=== PATIENT | female | born 2000 | race Caucasian/White ===

== ENCOUNTER → 2020-04-28 | Outpatient (CLI) | payer BC | LOC: LAB FS 14:41 | PROVIDERS: ATTEND Family Medicine | DX: N92.5 Other specified irregular menstruation (principal) | CPT/HCPCS: 36415; 84702 ==

== ENCOUNTER → 2020-05-28 | Outpatient (CLI) | payer BC | LOC: LAB FS 14:55 | PROVIDERS: ATTEND Family Medicine | DX: N92.6 Irregular menstruation, unspecified (principal) | CPT/HCPCS: 36415; 84443 ==

== ENCOUNTER → 2020-08-21 | Outpatient (CLI) | payer BC | LOC: LAB FS 10:38 | PROVIDERS: ATTEND Family Medicine | DX: N92.5 Other specified irregular menstruation (principal) | CPT/HCPCS: 36415; 84702 ==

== ENCOUNTER → 2021-02-02 | Outpatient (CLI) | payer BC ==
--- NOTE | 2021-02-02 16:59 | Diagnostic Imaging Report ---
INDICATION: anatomy survey. TECHNIQUE: Multiple Real-time grayscale images were obtained over the gravid uterus. COMPARISON: None. FINDINGS: A single live intrauterine is in breech presentation. The cervix measures approximately 5.9 cm in length. The amount of amniotic fluid appears visually appropriate. The placenta is posterior in position but the tip is not well visualized. The following structures are visualized and normal: cerebellum, cisterna magna, cerebral ventricles, kidneys, umbilical cord insertion, urinary bladder, three-vessel cord, and profile. The spine and heart were not well visualized due to position. Biometrical measurements are as follows: Biparietal 4.79 cm, age 20 weeks 4 days. Head circumference 17.94 cm, age 20 weeks 3 days. Abdominal circumference 16.56 cm, age 21 weeks 5 days. Femur length 3.32 cm, age 20 weeks 3 days. Sonographic estimate age: 20 weeks 6 days. Sonographic estimated date of delivery: 06/16/2021. Estimated Weight: 389 gm (+/- 57 gm). LMP percentile: 13%. heart rate: 149 beats per minute. number: 1 of 1. IMPRESSION: 1. Single live intrauterine with all of the visualized anatomy being normal. 2. The spine and heart were not well evaluated due to positioning. Consider followup ultrasound in the near future. 3. Additionally, the inferior margin of the placenta is not well visualized and attention to this region on followup surveillance is suggested. Dictated by: Dictated on workstation # [id number]
== END ==
LOC: RAD 14:40
PROVIDERS: ATTEND Obstetrics & Gynecology
DX: Z34.02 Encounter for supervision of normal first pregnancy, second trimester (principal); Z3A.00 Weeks of gestation of pregnancy not specified
CPT/HCPCS: 76805

== ENCOUNTER → 2021-03-12 | Outpatient (CLI) | payer BC ==
--- NOTE | 2021-03-12 17:15 | Diagnostic Imaging Report ---
INDICATION: Follow-up anatomic survey and placenta. TECHNIQUE: Multiple real-time grayscale images were obtained over the gravid uterus. COMPARISON: None. FINDINGS: There is a single live intrauterine gestation in cephalic presentation. The cervix is measured at 5.6 cm in length. There is no funneling or endocervical fluid. The edge of the placenta is measured at 10.6 cm away from the cervical os. The placenta is posterior. heart rate measures 134 BPM. Amniotic fluid is subjectively normal, and a vertical pocket is seen measuring 4.6 cm. On the previous anatomic survey, the spine and heart were not well seen. Again, due to the lie and the maternal body habitus, anatomic imaging is suboptimal, and the upper and lower spine is not well seen. The visible portions demonstrate no gross abnormality. A four-chamber heart and the outflow tracts are not shown. IMPRESSION: 1. Single live intrauterine gestation with normal heart rate and amniotic fluid. 2. No placenta previa. 3. Spine and heart anatomy remain not well seen. Dictated by: Dictated on workstation # [id number]
== END ==
LOC: RAD 15:15
PROVIDERS: ATTEND Obstetrics & Gynecology
DX: Z36.1 Encounter for antenatal screening for raised alphafetoprotein level (principal)
CPT/HCPCS: 76816

== ENCOUNTER 2021-06-01 10:06 | Outpatient (CLI) | payer BC ==
[~2021-06-01] VITALS: Ht 172.7 cm; Wt 120.1 kg
[2021-06-01] MEDS ORDERED: MV-M1TAB66 PO (10:18)
[2021-06-01 10:20] VITALS: BP 133/80
[2021-06-01 10:31] LABS: BILIRUBIN,URINE NEGATIVE (NEGATIVE); CLARITY,URINE CLEAR; COLOR,URINE YELLOW; GLUCOSE, URINE (UA) NEGATIVE (NEGATIVE); KETONES,URINE NEGATIVE (NEGATIVE); LEUKOCYTE ESTERASE ,URINE NEGATIVE (NEGATIVE); NITRITE,URINE NEGATIVE (NEGATIVE); PH,URINE 7.5 (5-9); PROTEIN,URINE NEGATIVE (NEGATIVE)
[2021-06-01 10:46] LABS: BACTERIA,URINE NEGATIVE /HPF; SQUAMOUS EPITHELIAL CELL,UR 0-2 /HPF
--- NOTE | 2021-06-02 08:36 | Physician Query-Final Dx ---
06/02/21 0836: Clinic Account Progress/Dx Physician Query: Please give diagnosis Please include # weeks gestation Date of Service Jun 01, 2021 at 10:06 AVIS MERCEDES MD 06/02/21 1143: Clinic Account Progress/Dx DIAGNOSIS: Diagnosis False labor at 38 weeks gestation ,FebJun 02, 2021 08:36 AVIS MERCEDES MD Jun 02, 2021 11:43
== END 2021-06-01 12:00 | disposition home or self-care (01) ==
LOC: LDRP 10:06 → WSo 10:06
PROVIDERS: ATTEND Obstetrics & Gynecology
DX: O47.1 False labor at or after 37 completed weeks of gestation (principal); Z3A.38 38 weeks gestation of pregnancy
CPT/HCPCS: 81000; G0463; 99213

== ENCOUNTER 2021-06-05 07:00 | Inpatient (IN) | payer BC, MEDICAID ==
[~2021-06-05] VITALS: Ht 172.7 cm; Wt 120.6 kg
[2021-06-05] VITALS (67 sets, daily range): BP systolic 114–152; BP diastolic 57–95
[~2021-06-05 07:00] MED LIST: MV-M1TAB66 PO
[2021-06-05] MEDS ORDERED: OXYTOCIN PRE-MIX DRIP 500 ML IV SCH ×2 (07:30→10:30)
[2021-06-05] MEDS ORDERED: AMPICILLIN FOR IV USE 2,000 MG in WATER (STERILE) FOR INJECTION 14.8 ML IV ONE (07:30)
[2021-06-05] MEDS: D5 LR IV SOLUTION 1,000 ML IV SCH ×2 (08:30→14:54)
[2021-06-05 08:44] LABS: BASOPHILS % (AUTO) 0 % (0-10); EOSINOPHILS # (AUTO) 0.1 10^3/uL (0.0-0.3); EOSINOPHILS % (AUTO) 1 % (0-10); HEMATOCRIT 38 % (35-52); HEMOGLOBIN 12.4 g/dL (11.5-16.0); LYMPHOCYTES # (AUTO) 2.5 10^3/uL (1.0-4.0); LYMPHOCYTES % (AUTO) 26 % (12-44); MEAN CORPUSCULAR HEMOGLOBIN 29 pg (25-34); MEAN CORPUSCULAR HGB CONC 32 g/dL (32-36); MEAN CORPUSCULAR VOLUME 89 fL (80-99); MEAN PLATELET VOLUME 11.3 fL (9.0-12.2); MONOCYTES # (AUTO) 0.6 10^3/uL (0.0-1.0); MONOCYTES % (AUTO) 6 % (0-12); NEUTROPHILS # (AUTO) 6.4 10^3/uL (1.8-7.8); NEUTROPHILS % (AUTO) 67 % (42-75); PLATELET COUNT 217 10^3/uL (130-400); WHITE BLOOD COUNT 9.6 10^3/uL (4.3-11.0)
--- NOTE | 2021-06-05 10:32 | Discharge Inst-Surgical ---
Discharge Inst-Surgical Depart Medication/Instructions New, Converted or Re-Newed RX: Other Consults/Follow Up Patient Instructions: As directed Orders & Referrals Follow Up Appt: Call to make follow up appt. for patient in 4 weeks. Activity Per routine post vaginal delivery instructions. Discharge medication prescriptions have been sent from my office. Diet as tolerated Patient may shower or tub bathe as desired. Activity Activity as Tolerated: Yes Diet Discharge Diet: No Restrictions AVIS MERCEDES MD Jun 05, 2021 10:32 am
[2021-06-05] MEDS: AMPICILLIN FOR IV USE 1,000 MG in WATER (STERILE) FOR INJECTION 7.4 ML IV SCH ×3 (12:19→21:05)
[2021-06-05] MEDS ORDERED: fentaNYL 2 mcg/ml BUPIVA 0.125 100 ML ONE (14:29)
[2021-06-05] MEDS ORDERED: fentaNYL INJ 100 MCG/2 ML AMP ONE (14:34)
[2021-06-05] MEDS ORDERED: BUPIVACAINE 0.25% 10 ML (SENSORCAINE) VIAL ONE (14:34)
[2021-06-05] MEDS ORDERED: LACTATED RINGERS 1,000 ML IV ONE (15:15)
[2021-06-05] MEDS ORDERED: NALOXONE 0.4 MG/ML 1 ML (NARCAN) VIAL IV PRN (15:15)
[2021-06-05] MEDS ORDERED: fentaNYL 2 mcg/ml BUPIVA 0.125 100 ML IV SCH (15:15)
[2021-06-05] MEDS ORDERED: CATHETER FLUSH 10 ML SYR IV PRN (15:15)
[2021-06-05] MEDS ORDERED: LIDOCAINE/EPI 2% 1:200,00 (XYLOCAINE) 10 ML VIAL ONE (21:13)
[2021-06-06] MEDS ORDERED: oxyCODONE/APAP 5/325MG (PERCOCET 5) TABLET PO PRN
[2021-06-06] MEDS ORDERED: ONDANSETRON 4 MG/2 ML (SDV) Z0FRAN IVP PRN
[2021-06-06] MEDS ORDERED: BENZOCAINE/MENTHOL (DERMOPLAST) 56 ML CAN TP PRN
[2021-06-06] MEDS ORDERED: TETANUS,DIPTH,PERTUSS P/F (BOOSTRIX) 0.5 ML VIAL IM ONE
[2021-06-06] MEDS ORDERED: OXYTOCIN PRE-MIX DRIP 500 ML IV SCH
[2021-06-06] MEDS ORDERED: KETOROLAC 30 MG/ML VIAL ONE (00:07)
[2021-06-06] MEDS: KETOROLAC 30 MG/ML VIAL IVP SCH ×2 (00:09→06:24)
[2021-06-06 00:11] VITALS: BP 121/59
[2021-06-06 05:00] VITALS: BP 110/59
[2021-06-06 08:15] VITALS: BP 118/78
[2021-06-06] MEDS: DOCUSATE SODIUM 100 MG (COLACE) CAP PO SCH ×2 (08:46→20:00)
--- NOTE | 2021-06-06 09:35 | Progress Note ---
Standard Progress Note Progress Notes/Assess & Plan Date Seen by a Provider: Jun 06, 2021 Time Seen by a Provider: 09:34 Progress/Assessment & Plan This patient is without complaint. She is ambulating, voiding, tolerating oral intake well and has good pain control. Vital Signs Date Time Temp Pulse Resp B/P (MAP) Pulse Ox O2 Delivery O2 Flow Rate FiO2 06/06/21 05:00 36.5 84 18 110/59 (76) 99 Room Air 06/06/21 00:11 37.1 91 20 121/59 (79) Room Air 06/05/21 23:56 85 20 122/71 (88) Room Air 06/05/21 23:41 91 20 120/66 (84) Room Air 06/05/21 23:26 90 20 133/78 (96) Room Air 06/05/21 23:16 92 20 142/79 (100) Room Air 06/05/21 22:56 89 20 131/60 (83) Room Air 06/05/21 22:41 94 20 130/65 (86) Room Air 06/05/21 22:26 89 20 131/61 (84) Room Air 06/05/21 22:12 89 20 135/61 (85) Room Air 06/05/21 21:56 96 20 137/82 (100) Room Air 06/05/21 21:45 37.2 88 20 140/79 (99) 100 Room Air 06/05/21 21:30 95 20 140/61 (87) 99 Room Air 06/05/21 21:15 37.1 85 20 130/81 (97) 100 Room Air 06/05/21 21:00 87 20 128/70 (89) 100 Room Air 06/05/21 20:45 89 20 131/83 (99) 100 Room Air 06/05/21 20:30 91 20 120/76 (91) 100 Room Air 06/05/21 20:15 85 20 122/63 (82) 100 Room Air 06/05/21 20:00 88 20 121/74 (90) 100 Room Air 06/05/21 19:45 84 20 116/57 (76) 100 Room Air 06/05/21 19:30 82 20 119/60 (79) 100 Room Air 06/05/21 19:15 85 20 133/83 (100) 100 Room Air 06/05/21 18:45 90 20 152/69 (96) 100 Room Air 06/05/21 18:30 93 20 136/81 (99) 100 Room Air 06/05/21 18:15 84 20 126/76 (93) 99 Room Air 06/05/21 18:00 81 20 134/80 (98) 95 Room Air 06/05/21 17:45 82 20 131/73 (92) 100 Room Air 06/05/21 17:30 76 20 130/76 (94) 100 Room Air 06/05/21 17:15 36.7 78 20 124/77 (93) 100 Room Air 06/05/21 17:00 82 20 121/78 (92) 100 Room Air 06/05/21 16:45 77 20 99 Room Air 06/05/21 16:30 82 20 120/77 (91) 100 Room Air 06/05/21 16:15 88 20 122/81 (95) 100 Room Air 06/05/21 16:00 86 20 116/72 (87) 100 Room Air 06/05/21 15:45 89 20 119/74 (89) 100 Room Air 06/05/21 15:30 91 20 127/72 (90) 100 Room Air 06/05/21 15:13 83 20 127/74 (91) 100 Room Air 06/05/21 15:09 83 20 126/72 (90) 99 Room Air 06/05/21 15:06 96 20 129/75 (93) 99 Room Air 06/05/21 15:03 90 20 121/73 (89) 100 Room Air 06/05/21 15:00 82 20 128/78 (95) 100 Room Air 06/05/21 14:57 86 20 146/77 (100) 100 Room Air 06/05/21 14:54 108 20 133/90 (104) 93 Room Air 06/05/21 14:51 85 20 132/92 (105) 100 Room Air 06/05/21 14:48 85 20 139/95 (110) 100 Room Air 06/05/21 14:45 86 20 137/83 (101) 100 Room Air 06/05/21 14:30 79 20 126/79 (95) 98 Room Air 06/05/21 14:15 71 20 130/80 (97) 100 Room Air 06/05/21 14:00 79 20 127/79 (95) 100 Room Air 06/05/21 13:45 77 20 126/78 (94) 99 Room Air 06/05/21 13:30 80 20 126/84 (98) 100 Room Air 06/05/21 13:15 82 20 124/85 (98) 99 Room Air 06/05/21 13:00 84 20 119/72 (88) 99 Room Air 06/05/21 12:45 87 20 116/68 (84) 99 Room Air 06/05/21 12:30 86 20 123/70 (87) 99 Room Air 06/05/21 12:15 79 20 119/71 (87) 100 Room Air 06/05/21 12:00 88 20 120/75 (90) 99 Room Air 06/05/21 11:45 77 20 117/73 (88) 99 Room Air 06/05/21 11:30 36.4 84 20 116/70 (85) 98 Room Air 06/05/21 11:15 95 20 100 06/05/21 11:00 77 20 120/67 (84) 99 Room Air 06/05/21 10:45 91 20 114/69 (84) 99 Room Air 06/05/21 10:30 89 20 120/72 (88) 100 Room Air 06/05/21 10:15 95 20 123/73 (90) 98 Room Air 06/05/21 10:00 80 20 117/78 (91) 98 Room Air 06/05/21 09:45 85 20 120/82 (95) 98 Room Air I & O 06/06/21 07:00 Intake Total 3551.8 ml Balance 3551.8 ml Vital signs are stable. Patient is afebrile. Fundus is firm below the umbilicus and nontender. Extremities show no clubbing cyanosis. There is no Homans' sign. Assessment and plan Post day #1 status post term spontaneous vaginal delivery at 39 weeks gestation doing well. Patient has requested discharge home we will allow discharge at her request Final Diagnosis 39-week spontaneous vaginal delivery AVIS MERCEDES MD Jun 06, 2021 9:35 am
[2021-06-06] MEDS ORDERED: OXYC1TAB87 PO (09:36)
[2021-06-06] MEDS ORDERED: DOCU100C37 PO (09:36)
[2021-06-06] MEDS ORDERED: IBUP-1780 PO (09:36)
--- NOTE | 2021-06-06 09:39 | OB Labor & Delivery Record ---
Labor & Delivery This patient delivered by term spontaneous vaginal delivery of a viable male infant with Apgars of 9 and 9 at 1 and 5 minutes respectively with a weight of 8 pounds and 10 ounces and the time of 2147. Cord blood pH was obtained and is available in the lab. Infant was bulb suctioned on delivery of the head and again on completion of delivery. The umbilical cord was doubly clamped and cut. The father cut the cord. The baby was passed to mom's abdomen. The placenta delivered spontaneously Xiong it was normal with a three-vessel cord. The cervix vagina rectum perineum were examined and found intact except for some minimal suprapubic facial abrasions periurethrally. No repairs were required. Sponge needle counts were correct on completion of the delivery and the inspection. Blood loss was around 100 cc. Patient tolerated delivery well and remained in the LDR for recovery the baby remained with mom. AVIS MERCEDES MD Jun 06, 2021 9:39 am
--- NOTE | 2021-06-06 09:59 | Anesthesia-Regional Post-Op ---
Regional Patient Condition Mental Status: Alert, Oriented x3 Circulation: Same as Pre-Op Headache: Absent Sensation: Full Recovery Motor Block: Absent Post Op Complications Complications None Follow Up Care/Instructions Patient Instructions None needed. Anesthesia/Patient Condition Patient is doing well, no complaints, stable vital signs, no apparent adverse anesthesia problems. No complications reported per nursing. D/C home per [facility] Criteria: Yes ABHISHEK DUMAS CRNA Jun 06, 2021 09:59
--- NOTE | 2021-06-06 10:03 | Anesthesia-Regional Post-Op ---
Regional Patient Condition Mental Status: Alert, Oriented x3 Circulation: Same as Pre-Op Headache: Absent Sensation: Full Recovery Motor Block: Absent Post Op Complications Complications None Follow Up Care/Instructions Patient Instructions None needed. Anesthesia/Patient Condition Patient is doing well, no complaints, stable vital signs, no apparent adverse anesthesia problems. No complications reported per nursing. D/C home per [facility] Criteria: Yes ABHISHEK DUMAS CRNA Jun 06, 2021 10:03
[2021-06-06 11:51] VITALS: BP 134/78
[2021-06-06] MEDS ORDERED: IBUPROFEN 800 MG (MOTRIN) TAB PO ONE ×2 (12:13→13:46)
[2021-06-06] MEDS ORDERED: IBUPROFEN 600 MG (MOTRIN) TAB PO ONE (13:46)
[2021-06-06] MEDS: IBUPROFEN 800 MG (MOTRIN) TAB PO SCH ×2 (14:12→20:00)
[2021-06-06 16:00] VITALS: BP 124/78
[2021-06-06 20:00] VITALS: BP 124/81
== END 2021-06-06 23:15 | disposition home or self-care (01) | DRG 807 ==
LOC: LDRP 07:10
PROVIDERS: ADMIT Obstetrics & Gynecology; ATTEND Obstetrics & Gynecology
PROC: 10E0XZZ Delivery of Products of Conception, External Approach (ICD-10-PCS; principal; 2021-06-05)
PROC: 3E033VJ Introduction of Other Hormone into Peripheral Vein, Percutaneous Approach (ICD-10-PCS; 2021-06-05)
DX: O80 Encounter for full-term uncomplicated delivery (principal); Z37.0 Single live birth; Z3A.39 39 weeks gestation of pregnancy
CPT/HCPCS: 36415; 85025; 86850; 86900; 86901